=== PATIENT | female | born 1960 | race Caucasian/White ===

== ENCOUNTER 2019-01-09 09:19 | Emergency (ER) | payer OTHER ==
[~2019-01-09] VITALS: Ht 157.5 cm; Wt 49.9 kg
[~2019-01-09 09:19] MED LIST: ATIVAN1 MG; BROMOCRIPTINE2.5 MG PO; BUTALBITAL-APAP1 TA3 PO; DEPAKOTE ER500 MG PO; DEXAMETHASONE0.75 MG PO; EFFEXOR XR150 MG PO; FLEXERIL10 MG; FLEXERIL10 MG PO; LORAZEPAM0.5 MG PO; NEURONTIN300 MG; PEPCID40 MG PO; PHENERGAN25 MG PO; PRILOSEC10 MG PO; PROTONIX20 MG; REGLAN5 MG/5 ML; ULTRAM50 MG
== END 2019-01-09 13:20 | disposition home or self-care (01) ==
LOC: ER 09:19
DX: S00.03XA Contusion of scalp, initial encounter (principal); S30.0XXA Contusion of lower back and pelvis, initial encounter; M54.5 Low back pain; W01.198A Fall on same level from slipping, tripping and stumbling with subsequent striking against other object, initial encounter; Y93.89 Activity, other specified; Y92.238 Other place in hospital as the place of occurrence of the external cause; Y99.8 Other external cause status

== ENCOUNTER → 2019-02-24 14:02 | Outpatient (CLI) | payer OTHER | END | disposition home or self-care (01) | LOC: LAB 14:02 | DX: Z00.8 Encounter for other general examination (principal) ==

== ENCOUNTER 2019-03-13 10:20 | Outpatient (CLI) | payer OTHER | END 2019-03-13 10:23 | disposition home or self-care (01) | LOC: MRI 10:20 | DX: D32.0 Benign neoplasm of cerebral meninges (principal) | CPT/HCPCS: 70553; A9575 ==

== ENCOUNTER 2019-05-21 09:41 | Outpatient (CLI) | payer OTHER | END 2019-05-21 10:00 | disposition home or self-care (01) | LOC: NUCLEAR 09:41 | DX: M81.0 Age-related osteoporosis without current pathological fracture (principal); M54.5 Low back pain; I10 Essential (primary) hypertension; E03.8 Other specified hypothyroidism; E78.89 Other lipoprotein metabolism disorders; E55.9 Vitamin D deficiency, unspecified; G20 Parkinson's disease; B94.8 Sequelae of other specified infectious and parasitic diseases; F33.41 Major depressive disorder, recurrent, in partial remission; Z96.641 Presence of right artificial hip joint; S72.001A Fracture of unspecified part of neck of right femur, initial encounter for closed fracture; R00.1 Bradycardia, unspecified; M25.551 Pain in right hip ==

== ENCOUNTER 2019-05-21 11:03 | Outpatient (CLI) | payer OTHER | END 2019-05-21 11:08 | disposition home or self-care (01) | LOC: MAMO-SONO 11:03 | DX: M54.5 Low back pain (principal); I10 Essential (primary) hypertension; E03.8 Other specified hypothyroidism; E78.89 Other lipoprotein metabolism disorders; E55.9 Vitamin D deficiency, unspecified; G20 Parkinson's disease; B94.8 Sequelae of other specified infectious and parasitic diseases; F33.41 Major depressive disorder, recurrent, in partial remission; Z96.641 Presence of right artificial hip joint; S72.001A Fracture of unspecified part of neck of right femur, initial encounter for closed fracture; R00.1 Bradycardia, unspecified; M25.551 Pain in right hip; Z12.31 Encounter for screening mammogram for malignant neoplasm of breast; Z87.898 Personal history of other specified conditions ==

== ENCOUNTER 2020-04-15 11:50 | Emergency (ER) | payer OTHER ==
[~2020-04-15] VITALS: Ht 157.5 cm; Wt 54.4 kg
[2020-04-15] MEDS ORDERED: LEXAPRO5 MG PO (12:04)
[2020-04-15] MEDS ORDERED: LEXAPRO20 MG PO (12:05)
[2020-04-15] MEDS ORDERED: NAPROXEN500 MG PO (12:05)
[2020-04-15] MEDS ORDERED: LIPITOR20 MG PO (12:05)
[2020-04-15] MEDS ORDERED: OMEPRAZOLE MAGN20 MG PO (12:06)
[2020-04-15] MEDS ORDERED: INDERAL XL80 MG PO (12:07)
[2020-04-15] MEDS ORDERED: LEVO-T50 MCG PO (12:07)
[2020-04-15] MEDS ORDERED: ZEBUTAL 50-3251 EACH PO (12:08)
[2020-04-15] MEDS ORDERED: KETO10TA2 PO (16:08)
[2020-04-15] MEDS ORDERED: MULTI VITAMIN1 EACH PO (16:08)
== END 2020-04-15 16:33 | disposition home or self-care (01) ==
LOC: ER 11:50
DX: N39.0 Urinary tract infection, site not specified (principal); B34.9 Viral infection, unspecified; Z20.822 Contact with and (suspected) exposure to COVID-19; R53.81 Other malaise; R51.9 Headache, unspecified

== ENCOUNTER 2021-08-12 06:25 | Emergency (ER) | payer OTHER ==
[~2021-08-12] VITALS: Ht 157.5 cm; Wt 51.3 kg
[~2021-08-12 06:25] MED LIST changes: +INDERAL XL80 MG PO; +KETO10TA2 PO; +LEVO-T50 MCG PO; +LEXAPRO20 MG PO; +LEXAPRO5 MG PO; +LIPITOR20 MG PO; +MULTI VITAMIN1 EACH PO; +NAPROXEN500 MG PO; +OMEPRAZOLE MAGN20 MG PO; +ZEBUTAL 50-3251 EACH PO
== END 2021-08-12 10:33 | disposition home or self-care (01) ==
LOC: ER 06:25
DX: B34.9 Viral infection, unspecified (principal); F32.A Depression, unspecified; I10 Essential (primary) hypertension; Z88.0 Allergy status to penicillin; Z91.011 Allergy to milk products; Z88.8 Allergy status to other drugs, medicaments and biological substances